=== PATIENT | female | born 1985 | race Caucasian/White ===

== ENCOUNTER 2017-01-21 12:03 | Emergency (ER) | payer OTHER ==
--- NOTE | 2017-01-21 12:46 | EMERGENCY ROOM VISIT NOTE ---
History First contact with patient: 12:11 Chief Complaint: CONSTIPATION Stated Complaint: CONSTIPATION Nursing Triage Summary: Pt has been constapated 2-3 days. Has gone very little and noticed some blood in stools. History of Present Illness The patient is a 31 year old female who presents to the Emergency Room with complaints of constipation for the past 2-3 days. The patient reports that for the past 2-3 days, her bowel movements have been smaller than normal. She does report some rectal pain with the bowel movement, but denies any abdominal pain. She has not taken any medication for constipation. She reports that she has been having bowel movements daily, but they are smaller than normal. She denies any history of constipation. She does report the stools have been dark and she has noticed a small amount of blood. She denies any nausea or vomiting. She does not take any narcotic medications. Review of Systems A complete 10-point Review of Systems was discussed with the patient, with pertinent positives and negatives listed in the History of Present Illness. All remaining Review of Systems questions can be considered negative unless otherwise specified. Social History Smoking Status: Never Smoker Current/Historical Medications Scheduled Docusate Sodium (Colace), 1 CAP PO BID Allergies Coded Allergies: No Known Allergies (Unverified , 01/21/17) Physical Exam Vital Signs Date Time Temp Pulse Resp B/P Pulse Ox O2 Delivery O2 Flow Rate FiO2 01/21/17 14:02 36.3 85 16 124/91 100 01/21/17 12:06 36.3 85 16 124/91 100 Physical Exam VITALS: Vitals are noted on the nurse's note and reviewed by myself. Vital signs stable. GENERAL: This is a 31-year-old female, in no acute distress, nondiaphoretic, well-developed well-nourished. SKIN: Capillary reflex less than 2 seconds. HEART: Regular rate and rhythm without murmurs gallops or rubs. LUNGS: Clear to auscultation bilaterally without wheezes, rales or rhonchi. ABDOMEN: Positive bowel sounds x 4. Soft, nontender to palpation. RECTAL: Deferred. NEURO: Patient was alert and oriented to person place and time. Medical Decision & Procedures ER Provider Diagnostic Interpretation: KUB CLINICAL HISTORY: constipation pain COMPARISON STUDY: No previous studies for comparison. FINDINGS: The soft tissues, psoas shadows, renal outlines and intestinal gas pattern appear normal. There is no evidence for bowel obstruction. No abnormal abdominal calcifications are seen. Possible minimal nephrocalcinosis IMPRESSION: Normal study. Medical Decision Differential diagnosis includes constipation, hemorrhoids, anal fissure, among others. The patient was evaluated as above with the assistance of a tongue lining stitcher. She has a benign abdominal examination. KUB was performed and did not show any significant constipation. Given the patient's history, I feel it is likely that she has a hemorrhoid or anal fissure. I did recommended a rectal exam, but the patient declined. She states she does not feel that she has a hemorrhoid, as she only has pain when she has hard stools. I did recommend a stool softener and give the patient a prescription for Colace. I did recommended the patient follow up with her primary care provider for further evaluation of her symptoms. She will return for new/concerning symptoms. She verbalized understanding of my assessment and treatment plan and was discharged home in good condition. Impression Primary Impression: Rectal pain Departure Information Dispostion Home / Self-Care Condition GOOD Prescriptions Docusate Sodium (COLACE) 100 Mg Cap 1 CAP PO BID for 14 Days, #28 CAP Prov: Nadia Phillips .LARA 01/21/17 Referrals No Doctor, Assigned (PCP) Patient Instructions My [facility] Additional Instructions You have been treated in the Emergency Department today for Constipation. Laboratory results and imaging studies do not indicate any emergent issues warranting surgery or admission. You should drink plenty of fluids and stay well hydrated as this can help soften your stool. Increasing your fiber intake can help with frequency and consistency of your stools. Fruits, vegetables, and whole grains are all good sources of dietary fibers. In addition, you might consider adding supplemental fiber to your diet as well (i.e. Benefiber, Fiber Choice, Metamucil). Take the Colace as prescribed. Follow-up with a primary care provider for further evaluation. Return to the Emergency Department if your current symptoms worsen despite treatment course outlined above, or if you develop any of the following symptoms : worsening abdominal pain, large amount of blood in the stool, black or tarry stools, fevers, chills, or uncontrollable vomiting.
--- NOTE | 2017-01-21 13:06 | DIAGNOSTIC IMAGING REPORT ---
KUB CLINICAL HISTORY: constipation pain COMPARISON STUDY: No previous studies for comparison. FINDINGS: The soft tissues, psoas shadows, renal outlines and intestinal gas pattern appear normal. There is no evidence for bowel obstruction. No abnormal abdominal calcifications are seen. Possible minimal nephrocalcinosis IMPRESSION: Normal study. Electronically signed by: Henry Rojas M.D. 01/21/2017 1:04 PM Dictated Date/Time: 01/21/2017 1:02 PM
[2017-01-21] MEDS ORDERED: DOCU-94 PO (13:44)
[2017-01-21 14:02] VITALS: BP 124/91; PULSE 85; TEMP 36.3; O2SAT 100
== END 2017-01-21 14:03 | disposition home or self-care (01) ==
LOC: C.EDB 12:06 → C.EDC 14:03
DX: K62.89 Other specified diseases of anus and rectum (principal)